=== PATIENT | male | born 2000 | race African-American/Black ===

== ENCOUNTER 2021-07-09 19:10 | Emergency (ER) | payer SELFPAY ==
[~2021-07-09] VITALS: Ht 188 cm; Wt 61.0 kg
[2021-07-09 19:24] VITALS: BP 100/61
--- NOTE | 2021-07-09 19:33 | NUR ---
PT TAKEN TO BED 1
--- NOTE | 2021-07-09 19:40 | NUR ---
PATIENT REPORTS TAKING 5 TABS OF TRAZADONE, HAS HISTORY OF BIPOLAR AND DEPRESSION. NO OTHER COMPLAINTS AT THIS TIME.
--- NOTE | 2021-07-09 19:41 | NUR ---
GIRLFRIEND HAS MORE INFO IF NEEDED -NISHA [phone].STATES PT HAS HX OF SI, CHARGE NURSE UPDATED.
--- NOTE | 2021-07-09 19:54 | NUR ---
AMBULATED TO RESTROOM
[2021-07-09 19:56] LABS: BASOPHILS % (AUTO) 0.5 % (0.0-2.0); EOSINOPHILS # (AUTO) 0.2 K/uL (0-0.4); EOSINOPHILS % (AUTO) 4.7 % (0.0-4.0); HEMATOCRIT 39.2 % (36-52); HEMOGLOBIN 13.2 g/dL (12.0-18.0); LYMPHOCYTES # (AUTO) 1.6 K/uL (2.0-11.5); LYMPHOCYTES % (AUTO) 33.1 % (20.5-51.1); MEAN CORPUSCULAR HEMOGLOBIN 30 pg (27-31); MEAN CORPUSCULAR HGB CONC 34 g/dL (33-37); MEAN CORPUSCULAR VOLUME 89.7 fL (80-94); MONOCYTES # (AUTO) 0.4 K/uL (0.8-1.0); MONOCYTES % (AUTO) 8.8 % (1.7-9.3); NEUTROPHILS # (AUTO) 2.6 K/uL (1.8-7.7); NEUTROPHILS % (AUTO) 52.9 % (42.2-75.2); PLATELET COUNT (AUTO) 162 K/uL (140-450); RED BLOOD CELL COUNT(AUTO) 4.37 MIL/uL (4.20-6.10); WHITE BLOOD COUNT (AUTO) 4.9 K/uL (4.8-10.8)
[2021-07-09 19:57] LABS: APPEARANCE,URINE CLEAR (CLEAR); BILIRUBIN,URINE NEGATIVE (NEGATIVE); BLOOD, URINE NEGATIVE (NEGATIVE); COLOR,URINE YELLOW (YELLOW); LEUKOCYTE ESTERASE ,URINE NEGATIVE (NEGATIVE); NITRITE, URINE NEGATIVE (NEGATIVE); UGLUCOSE NEGATIVE (NEGATIVE)
[2021-07-09 20:14] LABS: ACETAMINOPHEN < 0.5 ug/ml (10-30); ALBUMIN 4.1 g/dL (3.4-5.0); ANION GAP 11.8 (8-16); ASPARTATE AMINOTRANSFERASE 21 U/L (15-37); CARBON DIOXIDE 28.7 mmol/L (21-32); CHLORIDE 107 mmol/L (98-107); CREATININE 1.1 mg/dL (0.6-1.3); GFR ARICAN-AMERICAN 109 mL/min (>90); GLUCOSE 76 mg/dL (74-106); POTASSIUM 3.5 mmol/L (3.5-5.1); SALICYLATE 5.3 mg/dL (2.8-20.0); SODIUM SERUM 144 mmol/L (136-145); TOTAL BILIRUBIN 0.3 mg/dL (0.0-1.0); UREA NITROGEN, BLOOD 9 mg/dL (7-18)
--- NOTE | 2021-07-09 20:19 | NUR ---
PATIENT WALKED OUT OF ED AT THIS TIME. SECURITY MADE CONTACT WITH PATIENT
--- NOTE | 2021-07-09 20:21 | NUR ---
Valentino wu in [facility] - 07/09/21 at [address] Mejia examining patient.
--- NOTE | 2021-07-09 20:32 | NUR ---
PD CONTACTED AT THIS TIME. PATIENT SITTING OUTSIDE WITH FAMILY REFUSING TO COME BACK IN
[2021-07-09 20:34] LABS: BARBITURATE, URINE NEGATIVE ng/ml (NEG <=200); BENZODIAZEPINE, URINE NEGATIVE ng/mL (NEG <=200); CANNABINOID, URINE POSITIVE ng/mL (NEG <=50); COCAINE, URINE NEGATIVE ng/mL (NEG <=300); OPIATE, URINE NEGATIVE ng/mL (NEG <=2000); PHENCYCLIDINE SCREEN,URINE NEGATIVE ng/mL (NEG <=25)
--- NOTE | 2021-07-09 20:43 | NUR ---
PD MADE CONTACT WITH PATIENT, SPOKE WITH NAYELI CHAMBERS
--- NOTE | 2021-07-09 21:12 | NUR ---
PATIENT STILL NOT RETURNED TO ER BED. PER KADEEM MCKINLEY DISPATCHER PATIENT WAS CLEARED BY PD TO LEAVE AMA IF HE WISHED. PD SPOKE WITH MOTHER AND SISTER ON SCENE AND DETERMINED HE DID NOT MEET CRITERIA FOR HOLD. PATIENT LEFT AMA AT THIS TIME.
== END 2021-07-09 21:12 | disposition left against medical advice (07) ==
LOC: MED 19:10
DX: Z53.21 Procedure and treatment not carried out due to patient leaving prior to being seen by health care provider (principal)
CPT/HCPCS: 36415; 80053; 80305; 81003; 85025; 93005; G0480; G0482